=== PATIENT | female | born 1930 | race Hispanic/Latino ===

== ENCOUNTER 2022-04-30 05:37 | Inpatient (IN) | payer MEDICARE, BC ==
[~2022-04-30] VITALS: Ht 157.5 cm; Wt 46.3 kg
[2022-04-30] MEDS ORDERED: SODIUM CHLORIDE 0.9% 1000ML 1,000 ML IV STA (05:52)
[2022-04-30 06:32] LABS: BASOPHILS % 0.3 % (0.0-1.0); EOSINOPHILS # (AUTO) 0.3 (0.0-0.4); EOSINOPHILS % 2.2 % (0.0-6.0); HEMOGLOBIN 9.1 g/dL (12.0-16.0); LYMPHOCYTES # (AUTO) 1.5 (1.0-3.2); LYMPHOCYTES % 12.6 % (18.0-39.1); MEAN CORPUSCULAR HEMOGLOBIN 34.3 pg (28-32); MEAN CORPUSCULAR HGB CONC 33.7 g/dL (31-35); MEAN CORPUSCULAR VOLUME 101.9 fL (81-99); MONOCYTES # (AUTO) 0.8 (0.2-0.8); MONOCYTES % 6.2 % (4.4-11.3); NEUTROPHILS # (AUTO) 9.4 (2.1-6.9); NEUTROPHILS % 77.9 % (38.7-80.0); PLATELET COUNT 179 x10e3/uL (140-360); RED BLOOD COUNT 2.65 x10e6/uL (3.6-5.1); RED CELL DISTRIBUTION WIDTH 14.3 % (11.7-14.4)
[2022-04-30] MEDS ORDERED: ONDANSETRON HCL INJ 2MG/ML 2ML 2 MG/ML VIAL IV STA (06:38)
[2022-04-30] MEDS ORDERED: Morphine 2mg Syringe 2 MG/ML SYR IV ONE (06:45)
[2022-04-30 07:16] LABS: ALBUMIN/GLOBULIN RATIO 1.2 (0.8-2.0); ANION GAP 12.1 mmol/L (8-16); CREATININE, SERUM 1.19 mg/dL (0.57-1.11)
[2022-04-30 07:30] LABS: POTASSIUM 4.1 mmol/L (3.5-5.1)
[2022-04-30] MEDS ORDERED: FAMOTIDINE 20 MG/2 ML VIAL IV STA (07:39)
[2022-04-30] MEDS ORDERED: DONNATAL/LIDOCAINE/MAALOX 30 ML SUSP PO ONE (07:45)
[2022-04-30] MEDS ORDERED: LIDOCAINE VISC 2% SOLN 15 ML UDC ONE (07:55)
[2022-04-30] MEDS ORDERED: FAMOTIDINE 20 MG/2 ML VIAL IV ONE (07:56)
[2022-04-30] MEDS ORDERED: MAGNESIUM/ALUMINUM/SIMETHICONE 30 ML UDC ONE (07:56)
[2022-04-30] MEDS ORDERED: BELLADONNA ALK/PHENOBARBITAL 5 ML UDC ONE (07:56)
[2022-04-30] MEDS ORDERED: Morphine 4mg INJECTION 4 MG/ML INJ IV PRN (08:30)
[2022-04-30] MEDS ORDERED: ONDANSETRON HCL INJ 2MG/ML 2ML 2 MG/ML VIAL IV PRN (08:30)
[2022-04-30] MEDS: SODIUM CHLORIDE 0.9% 1000ML 1,000 ML IV SCH ×2 (08:45→20:39)
[2022-04-30 15:28] VITALS: BP 165/62
[2022-04-30 16:14] VITALS: BP 165/62
[2022-04-30] MEDS ORDERED: IRBESARTAN150 MG PO (18:32)
[2022-04-30] MEDS ORDERED: ATORVASTATIN CA20 MG PO (18:32)
[2022-04-30] MEDS ORDERED: CARVEDILOL25 MG (18:32)
[2022-04-30] MEDS ORDERED: FEROSUL325 MG PO (18:32)
[2022-04-30] MEDS ORDERED: MAGNESIUM OXID400 MG PO (18:32)
[2022-04-30] MEDS ORDERED: FARXIGA5 MG (18:32)
[2022-04-30] MEDS ORDERED: OMEPRAZOLE40 MG PO (18:32)
[2022-04-30 20:00] VITALS: BP 155/66
[2022-04-30 23:56] VITALS: BP 141/61
[2022-05-01] VITALS (7 sets, daily range): BP systolic 136–161; BP diastolic 61–79
[2022-05-01] MEDS: SODIUM CHLORIDE 0.9% 1000ML 1,000 ML IV SCH ×3 (01:36→18:05)
[2022-05-01 05:44] LABS: BASOPHILS % 0.4 % (0.0-1.0); EOSINOPHILS # (AUTO) 0.2 (0.0-0.4); EOSINOPHILS % 2.5 % (0.0-6.0); HEMATOCRIT 27.3 % (34.2-44.1); HEMOGLOBIN 8.5 g/dL (12.0-16.0); LYMPHOCYTES # (AUTO) 1.7 (1.0-3.2); LYMPHOCYTES % 22.1 % (18.0-39.1); MEAN CORPUSCULAR HEMOGLOBIN 31.6 pg (28-32); MEAN CORPUSCULAR HGB CONC 31.1 g/dL (31-35); MEAN CORPUSCULAR VOLUME 101.5 fL (81-99); MONOCYTES # (AUTO) 0.6 (0.2-0.8); MONOCYTES % 7.5 % (4.4-11.3); NEUTROPHILS # (AUTO) 5.2 (2.1-6.9); NEUTROPHILS % 67.1 % (38.7-80.0); PLATELET COUNT 201 x10e3/uL (140-360); RED BLOOD COUNT 2.69 x10e6/uL (3.6-5.1); RED CELL DISTRIBUTION WIDTH 13.9 % (11.7-14.4)
[2022-05-01 06:10] LABS: ALBUMIN 2.4 g/dL (3.5-5.0); ALBUMIN/GLOBULIN RATIO 0.9 (0.8-2.0); ANION GAP 11.1 mmol/L (8-16); CALCIUM 8.3 mg/dL (8.4-10.2); CREATININE, SERUM 1.06 mg/dL (0.57-1.11); POTASSIUM 4.1 mmol/L (3.5-5.1)
[2022-05-02 01:04] VITALS: BP 158/67
[2022-05-02] MEDS: SODIUM CHLORIDE 0.9% 1000ML 1,000 ML IV SCH ×3 (03:29→18:35)
[2022-05-02 05:07] VITALS: BP 151/70
[2022-05-02 08:00] VITALS: BP 145/70
[2022-05-02 08:52] VITALS: BP 145/70
[2022-05-02 12:32] VITALS: BP 153/76
[2022-05-02 14:48] LABS: ANION GAP 8.4 mmol/L (8-16); CREATININE, SERUM 1.07 mg/dL (0.57-1.11); MAGNESIUM 1.7 MG/DL (1.3-2.1); PHOSPHORUS 2.7 MG/DL (2.3-4.7); POTASSIUM 3.4 mmol/L (3.5-5.1)
[2022-05-02 16:00] VITALS: BP 138/81
[2022-05-02] MEDS ORDERED: ONDANSETRON ODT4 MG PO (17:57)
[2022-05-02] MEDS ORDERED: POTASSIUM CHLORIDE 20 MEQ TAB CR PO ONE (18:15)
== END 2022-05-02 19:17 | disposition home or self-care (01) | DRG 439 ==
LOC: ER 06:35 → ERHOLD 08:29 → MED/SURG 13:49 → OBSVTOIN 05-01 09:36
PROVIDERS: ADMIT Internal Medicine; ATTEND Internal Medicine
DX: K85.90 Acute pancreatitis without necrosis or infection, unspecified (principal); N17.9 Acute kidney failure, unspecified; K57.90 Diverticulosis of intestine, part unspecified, without perforation or abscess without bleeding; K82.8 Other specified diseases of gallbladder
CPT/HCPCS: 36415; 74176; 80048; 80053; 82550; 82553; 83690; 83735; 84100; 84484; 85025; 93005; 99284; G0378; J2270; J2405; J7030